=== PATIENT | female | born 1990 | race African-American/Black ===

== ENCOUNTER 2017-07-15 14:53 | Emergency (ER) | payer BC ==
[~2017-07-15] VITALS: Ht 165.1 cm; Wt 54.4 kg
[2017-07-15 15:03] VITALS: BP 105/69
--- NOTE | 2017-07-15 15:07 | Emergency Room Report ---
History of Present Illness General Chief Complaint: Female Urogenital Problems Source: Patient Present Illness HPI 27 YO Female presents to the ED c/o vaginal bleeding that is heavy x 2 days with 8/10 in severity cramping pain. pt. reports having Nexplanon implant placed last year, and has not had a period in 5 months. pt. reports using 3 super absorbency tampons both yesterday and today. pt. denies N/V, Constipation , Diarrhea, abdominal pain/tenderness. denies fevers or chills. denies vaginal d /c other than bleeding, denies lesions, rashes or swollen tender lymph-nodes. denies feeling light headed, fatigued, or syncope. Denies CP, Palpitations, LOC , AMS, dizziness, Changes in Vision, Sensation, paresthesias, or a sudden severe headache. PT. inquiring about removal of Nexplanon implant. Allergies: Coded Allergies: No Known Allergies (Unverified , 07/15/17) Patient History Past Medical History: see triage record Past Surgical History: none Pertinent Family History: none Immunizations: UTD Reviewed Nursing Documentation: PMH: Agreed, PSxH: Agreed Nursing Documentation-PMH Past Medical History: No Stated History Review of Systems All Other Systems: negative except mentioned in HPI Physical Exam Vital Signs Date Time Temp Pulse Resp B/P (MAP) Pulse Ox O2 Delivery O2 Flow Rate FiO2 07/15/17 14:56 98.4 81 20 105/69 99 Room Air Sp02 EP Interpretation: reviewed, normal General Appearance: no apparent distress, alert, GCS 15, non-toxic Head: normocephalic, atraumatic Eyes: bilateral eye normal inspection, bilateral eye PERRL ENT: hearing grossly normal, normal voice Neck: full range of motion, supple/symm/no masses Respiratory: lungs clear, normal breath sounds, speaking full sentences Cardiovascular #1: regular rate, rhythm, normal capillary refill Gastrointestinal: normal bowel sounds, non tender, soft Rectal: deferred Genitourinary: normal inspection, no CVA tenderness, deferred - PT. declines pelvic exam. Musculoskeletal: back normal, gait/station normal, normal range of motion, non- tender Neurologic: alert, oriented x3, responsive, motor strength/tone normal, sensory intact, speech normal Skin: normal color, no rash, warm/dry, well hydrated Lymphatic: no adenopathy Medical Decision Making PA Attestation Dr. Hays is my supervising Physician whom patient management has been discussed with. Diagnostic Impression: Primary Impression: Dysmenorrhea ER Course 27 YO Female presents to the ED c/o vaginal bleeding that is heavy x 2 days with 8/10 in severity cramping pain. pt. reports having Nexplanon implant placed last year, and has not had a period in 5 months. pt. reports using 3 super absorbency tampons both yesterday and today. pt. denies N/V, Constipation , Diarrhea, abdominal pain/tenderness. denies fevers or chills. denies vaginal d /c other than bleeding, denies lesions, rashes or swollen tender lymph-nodes. denies feeling light headed, fatigued, or syncope. Denies CP, Palpitations, LOC , AMS, dizziness, Changes in Vision, Sensation, paresthesias, or a sudden severe headache. PT. inquiring about removal of Nexplanon implant. Ddx considered but are not limited to: Fibroid, ectopic , Malignancy, Spontaneous , , DUB, anemia, dysmenorrhea just to name a few. Vital signs: are WNL, pt. is afebrile H&PE are most consistent with: Dysmenorrhea, will check UA and Urine Hcg. I do not suspect significant blood loss/ anemia at this time. ORDERS: -Urine Hcg: negative -UA : no evidence of infection. ED INTERVENTIONS: -Toradol IM - I do not suspect an emergent condition at this time. With current presentation , pt. is stable for close outpatient follow up with OBGYN and conservative treatment. D/w pt. to return promptly to ED with worsening or new symptoms.- Pt. (and or responsible green party) verbalizes' understanding and agreement with proposed treatment plan. DISCHARGE: At this time pt. is stable for d/c to home. Will provide printed patient care instructions, and any necessary prescriptions. Care plan and follow up instructions have been discussed with the patient prior to discharge. Labs Test 07/15/17 15:30 Urine Color Yellow Urine Appearance Clear Urine pH 7 (4.5-8.0) Urine Specific [place] 1.010 (1.005-1.035) Urine Protein 1+ (NEGATIVE) Urine Glucose (UA) Negative (NEGATIVE) Urine Ketones Negative (NEGATIVE) Urine Occult Blood 5+ (NEGATIVE) Urine Nitrite Negative (NEGATIVE) Urine Bilirubin Negative (NEGATIVE) Urine Urobilinogen Normal MG/DL (0.0-1.0) Urine Leukocyte Esterase 1+ (NEGATIVE) Urine RBC 10-15 /HPF (0 - 2) Urine WBC 2-4 /HPF (0 - 2) Urine Squamous Epithelial Cells Few /LPF (NONE/OCC) Urine Bacteria Few /HPF (NONE) Urine HCG, Qualitative Negative Last Vital Signs Date Time Temp Pulse Resp B/P (MAP) Pulse Ox O2 Delivery O2 Flow Rate FiO2 07/15/17 14:56 98.4 81 20 105/69 99 Room Air Disposition: HOME, SELF-CARE Condition: Stable Scripts Docusate Sodium* (COLACE*) 100 Mg Capsule 100 MG ORAL TWICE A DAY for 30 Days, #60 CAP Prov: Holly Gr 07/15/17 Iron,Carbonyl/Ascorbic Acid (IRON 100-VITAMIN C TABLET) 1 Each Tablet 1 EACH PO DAILY, #30 TAB Prov: Holly Gr 07/15/17 Diclofenac Sod* (VOLTAREN*) 75 Mg Tablet.dr 75 MG ORAL THREE TIMES A DAY for 5 Days, #15 TAB Prov: Holly Gr 07/15/17 Departure Forms: Return to Work Return to Work Date: Jul 17, 2017 Work Restrictions: None Return to Full Activity: Jul 17, 2017 Patient Instructions: Dysmenorrhea Additional Instructions: Take medications as directed. Follow up with a OBGYN in 3-5 days, even if your symptoms have resolved. * * Return sooner to ED if new symptoms occur, or current symptoms become worse. - Please note that this Emergency Department Report was dictated using [employer] account manager technology software, occasionally this can lead to erroneous entry secondary to interpretation by the dictation equipment. Holly Gr Jul 15, 2017 15:07
[2017-07-15] MEDS ORDERED: Ketorolac 60mg Inj IM ONE (15:30)
[2017-07-15 15:59] LABS: APPEARANCE,URINE CLEAR; KETONES,URINE NEGATIVE (NEGATIVE); LEUKOCYTE ESTERASE ,URINE 1+ (NEGATIVE); NITRITE,URINE NEGATIVE (NEGATIVE); PH,URINE 7 (4.5-8.0); PROTEIN,URINE 1+ (NEGATIVE); UROBILINOGEN,URINE NORMAL MG/DL (0.0-1.0)
[2017-07-15 16:12] LABS: BACTERIA,URINE FEW /HPF; SQUAMOUS EPITHELIAL CELL,UR FEW /LPF (NONE/OCC)
[2017-07-15] MEDS ORDERED: IRON 100-VITAM1 EACH PO (16:15)
[2017-07-15] MEDS ORDERED: DICLOFENAC SODI75 MG ORAL (16:15)
[2017-07-15] MEDS ORDERED: COLACE100 MG ORAL (16:19)
[2017-07-15 16:24] VITALS: BP 105/69
== END 2017-07-15 16:33 | disposition home or self-care (01) ==
LOC: EMR 15:21
DX: N94.6 Dysmenorrhea, unspecified (principal); N92.0 Excessive and frequent menstruation with regular cycle
CPT/HCPCS: 81003; 81025; 96372; 99284